=== PATIENT | female | born 1985 | race Caucasian/White ===

== ENCOUNTER 2018-06-22 22:14 | Emergency (ER) | payer MEDICAID ==
[~2018-06-22] VITALS: Ht 157.5 cm; Wt 68.0 kg
[2018-06-22 22:27] VITALS: BP_SYST 146
[2018-06-22 22:53] LABS: BILIRUBIN,URINE 1+ (NEGATIVE); BLOOD, URINE 2+ (NEGATIVE); CLARITY/URINE SL HAZY (CLEAR); COLOR,URINE YELLOW (YELLOW); GLUCOSE,URINE NEGATIVE (NEGATIVE); KETONES,URINE 3+ (NEGATIVE); LEUKOCYTE ESTERASE ,URINE NEGATIVE (NEGATIVE); NITRITE, URINE NEGATIVE (NEGATIVE); PH,URINE 5.5 (5.0-8.0); PROTEIN URINE 1+ (NEGATIVE); UROBILINOGEN,URINE 0.2 (0.2-1.0)
[2018-06-22 23:01] LABS: WBC,URINE 0-3 /HPF (0-3)
[2018-06-22 23:02] LABS: BACTERIA,URINE MODERATE /HPF (None Seen)
[2018-06-22 23:03] LABS: MUCUS,URINE None Seen /LPF (None Seen); YEAST,URINE None Seen /HPF (None Seen)
[2018-06-22] MEDS ORDERED: LACTULOSE 20 GM/30 ML UDC PO ONE (23:15)
[2018-06-22] MEDS ORDERED: NA PHOS,M-B/NA PHOS,DI-BA 118 ML (FLEET ENEMA) RC ONE (23:15)
[2018-06-23] MEDS ORDERED: KETOROLAC TROMETHAMINE 30 MG VIAL IM ONE (01:00)
[2018-06-23] MEDS ORDERED: metroNIDAZOLE 500 MG TABLET PO ONE (01:15)
[2018-06-23] MEDS ORDERED: CIPROFLOXACIN HCL 500 MG TABLET PO ONE (01:15)
[2018-06-23 01:50] VITALS: BP_SYST 134
== END 2018-06-23 01:50 | disposition home or self-care (01) ==
LOC: SED 22:14
DX: K52.9 Noninfective gastroenteritis and colitis, unspecified (principal); K59.00 Constipation, unspecified; F15.90 Other stimulant use, unspecified, uncomplicated; F17.210 Nicotine dependence, cigarettes, uncomplicated; I10 Essential (primary) hypertension; F31.9 Bipolar disorder, unspecified; Z71.6 Tobacco abuse counseling
CPT/HCPCS: 74018; 74176; 81000; 87086; 96372; 99285; J1885